=== PATIENT | male | born 1960 | race Caucasian/White ===

== ENCOUNTER 2020-02-22 01:31 | Emergency (ER) | payer OTHER ==
[~2020-02-22] VITALS: Ht 185.4 cm; Wt 136.1 kg
[2020-02-22 02:34] LABS: ABSOLUTE NEUTROPHILS 11.7 thou/uL (1.4-8.2); BASOPHILS 0.4 % (0.0-2.0); EOSINOPHILS 1.6 % (0.0-3.0); HEMATOCRIT 40.6 % (42.0-52.0); HEMOGLOBIN 13.2 gm/dL (14.0-18.0); LYMPHOCYTES 7.4 % (24.0-44.0); MCH 30.5 pg (26.0-34.0); MCHC 32.6 g/dL (28.0-37.0); MCV 93.4 fL (80.0-100.0); PLATELET COUNT 237 thou/uL (150-400); POLYS 83.6 % (36.0-66.0); RBC 4.34 mil/uL (4.50-6.00); WBC 13.9 thou/uL (4.0-11.0)
[2020-02-22 02:42] LABS: ANION GAP 10 mmol/L (7-16); BUN 24 mg/dL (7-18); CALCIUM 8.9 mg/dL (8.5-10.1); CHLORIDE 102 mmol/L (98-107); CO2 29 mmol/L (21-32); CREATININE 1.1 mg/dL (0.7-1.3); GLUCOSE 156 mg/dL (74-106); POTASSIUM 5.5 mmol/L (3.5-5.1); SODIUM 141 mmol/L (136-145)
[2020-02-22 02:48] LABS: URINE BILIRUBIN NEGATIVE (Negative); URINE BLOOD NEGATIVE (Negative); URINE CLARITY CLEAR; URINE COLOR YELLOW; URINE GLUCOSE-RANDOM* NEGATIVE (Negative); URINE KETONES 1+ (Negative); URINE LEUKOCYTES-REFLEX NEGATIVE (Negative); URINE NITRITE-REFLEX NEGATIVE (Negative); URINE PROTEIN (DIPSTICK) NEGATIVE (Negative); URINE SPECIFIC GRAVITY >= 1.030 (1.005-1.035); URINE UROBILINOGEN 0.2 E.U./dl (0.2-1.0)
[2020-02-22 02:48] LABS: ALBUMIN 3.9 g/dL (3.4-5.0); DIRECT BILIRUBIN 0.1 mg/dL (<0.1-0.2); TOTAL BILIRUBIN 0.4 mg/dL (0.2-1.0); TOTAL PROTEIN 7.8 g/dL (6.4-8.2)
[2020-02-22 02:53] LABS: TROPONIN-I <0.06 ng/mL (<0.06)
[2020-02-22 04:34] VITALS: BP 128/63
--- NOTE | 2020-02-23 07:51 | EKG ---
[facility] [place] [address] ELECTROCARDIOGRAM REPORT Name: NANDINI SUAZO Room #: DEP [facility]#: [id number] Admission: 02/22/20 Attend Phys: Discharge: 02/22/20 Date of : 60 Report #: [id number] THIS REPORT FOR: cc: [facility] - Clinic physician unknown [facility] - Clinic physician unknown Prem Lyn MD [facility] THIS REPORT FOR: //name// [facility] ED Test Date: 2020-02-22 Test Time: 01:45:45 Pat Name: NANDINI SUAZO Department: Room: Gender: [employer] Supervisor: . : 1960 Requested By: Elmer Nowak Order Number: [id number] MD: Prem Lyn Measurements Intervals [place] Rate: 102 P: 45 LA: 140 QRS: 5 QRSD: 96 T: 42 QT: 332 QTc: 433 Interpretive Statements Sinus tachycardia No previous ECG available for comparison Electronically Signed On 02-23-2020 7:51:41 CDT by Prem Lyn [email or web address] <ELECTRONICALLY SIGNED> By: Prem Lyn MD, FAC 02/23/20 0751 0145 0145 Prem Lyn MD, FACC /EPI
== END 2020-02-22 04:36 | disposition home or self-care (01) ==
LOC: ER 01:31
PROVIDERS: Emergency Medicine
DX: J98.11 Atelectasis (principal)